=== PATIENT | female | born 1980 | race Caucasian/White ===

== ENCOUNTER 2020-08-15 17:22 | Emergency (ER) | payer SELFPAY ==
[2020-08-15 17:26] VITALS: BP 127/88; PULSE 89; RESP 16; TEMP 36.7; O2SAT 100; BMI 20.3
--- NOTE | 2020-08-15 17:34 | W.ED.ABDPA2 ---
HPI - Abdominal Pain General: Chief Complaint: Abdominal Pain Stated Complaint: ABD PAIN Time Seen by Provider: 08/15/20 17:32 History of Present Illness: HPI narrative: Patient is a 40-year-old female comes to the ED with left lower pelvic pain and vaginal bleeding. Patient says this is a chronic issue and has been going on since 2019. She was set up to see an OB specialist in [place] due to an abnormal Pap smear about a year ago but lost her insurance and never went. Denies having a current PCP. patient says she has daily vaginal bleeding that fluctuates between light and heavy bleeding each day. She usually has mild left pelvic pain daily. Today she comes to the ED because her left-sided pelvic pain was a lot worse than usual. She describes it as a sharp pain and says she took some Aleve before coming to the ED and her pain has improved. She currently rates her pain a 3 out of 10. Patient endorses having constipation and having bowel movements every 5 to 7 days. Denies fever, chills, chest pain, shortness of breath, nausea/vomiting, diarrhea, dysuria or hematuria. Associated Symptoms: Denies chills, constipation, diarrhea, dysuria, fever(s), hematochezia, hematuria, nausea and vomiting Related Data: Date of Last Menstrual Period: 08/15/20 Review of Systems Const: Denies: fever(s), chills or fatigue Eyes: Denies: change in vision or eye discomfort ENMT: Denies: throat pain, odynophagia, nasal discharge or nasal congestion Card: Denies: chest pain, palpitations, edema, swelling of feet/ankles, dyspnea on exertion or orthopnea Resp: Denies: dyspnea, productive cough or non-productive cough GI: Denies: abdominal pain, nausea, vomiting, diarrhea, constipation or hematochezia : Reports: vaginal bleeding and pelvic pain (left side); Denies: flank pain, dysuria or hematuria Musc: Denies: neck pain, back pain or extremity swelling Skin/Breast: Denies: rash or new lesions Neuro: Denies: headache(s), numbness in extremities or weakness in extremities [facility] ED Female Reproductive History: Date of last menstrual period: 08/15/20 Physical Exam Const: COMMON NORMALS: no acute distress, patient oriented x3, healthy appearing and alert GENERAL APPEARANCE: cooperative and comfortable HENMT: COMMON NORMALS: normocephalic HEAD & SCALP: normocephalic MOUTH: Normal oral and palatal mucosa present THROAT: posterior oropharynx normal and uvula midline Neck/C-Spine: COMMON NORMALS: supple GENERAL: Yes normal visual inspection Resp: COMMON NORMALS: normal respiratory effort, No retractions, No use of accessory muscles and clear to auscultation bilaterally AUSCULTATION: clear to auscultation bilaterally Cardio: COMMON NORMALS: regular rate, regular rhythm, S1 normal heart sound present, S2 normal heart sound present, No gallops present (Cardio), No clicks present (Cardio), No murmurs present (Cardio) and Peripheral pulses 2+ throughout RATE: regular rate RHYTHM: regular rhythm HEART SOUNDS: S1 normal heart sound present and S2 normal heart sound present PERIPHERAL PULSES: Peripheral pulses 2+ throughout GI: COMMON NORMALS: Normal to inspection, nondistended, normoactive bowel sounds present, Soft to palpation and no masses PALPATION: Yes Soft to palpation and Yes Tenderness to palpation present (GI) Details: other (left lower pelvic tenderness) : COMMON NORMALS: Yes no CVA tenderness BLADDER/KIDNEY EXAM: Yes no CVA tenderness Back/Pelvis: COMMON NORMALS: no CVA tenderness Extremity: COMMON NORMALS: normal to inspection and no pedal edema Neuro: COMMON NORMALS: patient oriented x3 SENSORIUM/ORIENTATION: Yes alert GAIT: Yes Normal gait present Skin: GENERAL SKIN EXAM: dry skin Course Vital Signs: Vital signs: Vital Signs Temperature 98.1 F 08/15/20 20:48 Pulse Rate 89 08/15/20 20:48 Respiratory Rate 16 08/15/20 20:48 Blood Pressure 122/80 08/15/20 20:48 Pulse Oximetry 99 08/15/20 20:48 MDM - Abdominal Pain MDM Narrative: Medical decision making narrative: Patient is a 40-year-old female comes to the ED with chronic pelvic pain and vaginal bleeding. Patient says symptoms have been going on since 2019. She was scheduled to see an manager summer specialist in [place] about a year ago to further evaluate abnormal Pap smear, but she lost her insurance and never went to see manager summer specialist. Patient appears in no acute distress or pain. CBC and CMP were unremarkable. Urinalysis shows possible UTI. Ultrasound of the pelvis shows uterine fibroid and cervix with an abnormality which could be due to a fibroid or other cervical mass. I went in and discussed ultrasound findings with patient. I highlighted with patient that it is very important for her to follow-up with OB.contact center analyst specialist to further evaluate cervix. I told her that I put in an order with case management for patient be referred to an manager summer specialist. Return to ED precautions given. I once again stressed with patient that this could potentially be cancerous and told her that she needs to get further evaluation and should go to scheduled appointment with specialist once set up by case management. Patient understood and agreed with plan. Lab Data: Attestation: I reviewed the patient's lab results. Labs: Lab Results 08/15/20 08/15/20 08/15/20 Range/Units 17:53 17:53 17:53 WBC 12.4 H (4.0-10.0) 10^3/ uL RBC 4.28 (4.1-5.3) 10^6/u L Hgb 13.5 (11.5-15.3) g/dL Hct 40.3 (37.0-47.0) % MCV 94.2 (81-99) fL MCH 31.5 (28.0-34.0) pg MCHC 33.5 (30.0-36.0) g/dL RDW 14.6 (12.1-15.1) % Plt Count 192 (130-400) 10^3/c mm MPV 12.4 H (7.4-10.4) fL Neut % (Auto) 69.5 % Lymph % (Auto) 15.4 % [place] % (Auto) 6.4 % Eos % (Auto) 8.0 % Baso % (Auto) 0.5 % Neut # (Auto) 8.65 H (1.8-7.7) 10^3/u L Lymph # (Auto) 1.9 (0.8-4.8) 10^3/u L [place] # (Auto) 0.8 (0.2-0.9) 10^3/u L Eos # (Auto) 1.0 H (0.0-0.8) 10^3/u L Baso # (Auto) 0.1 (0.0-0.1) 10^3/u L Nucleated RBC % (a uto) 0 % Nucleated RBCs # 0.0 /100WBC Sodium Cancelled Potassium Cancelled Chloride Cancelled Carbon Dioxide Cancelled Anion Gap Cancelled BUN Cancelled Creatinine Cancelled GFR Calculation Cancelled Glucose Cancelled Calculated Osmolal ity Cancelled Calcium Cancelled Total Bilirubin Cancelled AST Cancelled ALT Cancelled Alkaline Phosphata se Cancelled Total Protein Cancelled Albumin Cancelled Globulin Cancelled Lipase Cancelled HCG, Qual Negative (Negative) Urine Color (Yellow) Urine Appearance (CLEAR) Urine pH (5-7) Ur Specific Gravit y (1.005-1.030) Urine Protein (Negative) Urine Glucose (UA) (Normal) Urine Ketones (Negative) Urine Blood (Negative) Urine Nitrate (Negative) Urine Bilirubin (Negative) Urine Urobilinogen (Negative) mg/dL Ur Leukocyte Joy ase (Negative) Urine RBC (0-2) /hpf Urine WBC (0-5) /hpf Ur Squamous Epith Cells (0-5) /hpf Amorphous Sediment Urine Bacteria (NONE) /hpf 08/15/20 08/15/20 Range/Units 18:40 19:04 WBC (4.0-10.0) 10^3/ uL RBC (4.1-5.3) 10^6/u L Hgb (11.5-15.3) g/dL Hct (37.0-47.0) % MCV (81-99) fL MCH (28.0-34.0) pg MCHC (30.0-36.0) g/dL RDW (12.1-15.1) % Plt Count (130-400) 10^3/c mm MPV (7.4-10.4) fL Neut % (Auto) % Lymph % (Auto) % [place] % (Auto) % Eos % (Auto) % Baso % (Auto) % Neut # (Auto) (1.8-7.7) 10^3/u L Lymph # (Auto) (0.8-4.8) 10^3/u L [place] # (Auto) (0.2-0.9) 10^3/u L Eos # (Auto) (0.0-0.8) 10^3/u L Baso # (Auto) (0.0-0.1) 10^3/u L Nucleated RBC % (a uto) % Nucleated RBCs # /100WBC Sodium 140 Potassium 3.8 Chloride 107 Carbon Dioxide 21 L Anion Gap 15.8 BUN 12 Creatinine 0.6 GFR Calculation 111.9 Glucose 92 Calculated Osmolal ity 289 Calcium 9.7 Total Bilirubin 0.2 AST 14 ALT 9 Alkaline Phosphata se 91 Total Protein 7.6 Albumin 4.4 Globulin 3.2 Lipase 23 HCG, Qual (Negative) Urine Color Red (Yellow) Urine Appearance Bloody A (CLEAR) Urine pH 5.0 (5-7) Ur Specific Gravit y 1.005 (1.005-1.030) Urine Protein 2+ H (Negative) Urine Glucose (UA) Norm (Normal) Urine Ketones 1+ H (Negative) Urine Blood 3+ H (Negative) Urine Nitrate Negative (Negative) Urine Bilirubin Neg (Negative) Urine Urobilinogen Norm (Negative) mg/dL Ur Leukocyte Joy ase 2+ H (Negative) Urine RBC 15-25 H (0-2) /hpf Urine WBC 40-55 H (0-5) /hpf Ur Squamous Epith Cells 5-10 H (0-5) /hpf Amorphous Sediment Not Reportable Urine Bacteria Trace (NONE) /hpf Imaging Data ^: US: Attestation: I personally reviewed and interpreted this imaging study as follows: Radiologist's impression: [address] [address] Ultrasound Report Signed with Addenda Patient: Yanely Barajas Unit #: [id number] : [id number] Age/Sex: 40 / F ADM Date: 08/15/20 Loc: ER Room/Bed: Attending Dr: Ordering Provider/Ordering MD: Ilir Chaudhary Date of Service: 08/15/20 Procedure(s): US pelvic with transvaginal Accession Number(s): [id number] Report Number: [id number] ADDENDUM US/US pelvic with transvaginal This study included both transabdominal and transvaginal images. Addendum Dictated By: Vinh Adhikari Addendum Signed By: Vinh Adhikari Signed Date/Time: 08/15/20 1 924 Addendum Cosigned By: PROCEDURE INFORMATION: Exam: US Nonobstetric Pelvis; Complete Exam date and time: 08/15/2020 7:07 PM Age: 40 years old Clinical indication: Other: Bleeding; Prior surgery; Surgery type: C-sec; Additional info: Vaginal bleeding and left pelvic pain TECHNIQUE: Imaging protocol: Transabdominal pelvic nonobstetric ultrasound. Complete exam. Real time ultrasound with image documentation. COMPARISON: No relevant prior studies available. FINDINGS: Uterus/cervix: The uterus measures 9.3 x 4.6 x 5.2 cm. Endometrial thickness 7 mm. 2.6 cm slightly hyperechoic mass in the lower anterior uterus, most likely a fibroid. There is fullness in the region of the cervix. Right adnexa: The right ovary measures 3.2 x 2.1 x 2.7 cm with a 2.2 cm hemorrhagic follicle and normal blood flow. Left adnexa: The left ovary measures 3.2 x 1.8 x 2.7 cm with normal blood flow. Intraperitoneal space: Trace free fluid in the cul-de-sac. Urinary bladder: Normal. US/US pelvic with transvaginal IMPRESSION: 1. 2.2 cm hemorrhagic follicle in the right ovary. No imaging follow-up is recommended. 2. Probable 2.6 cm lower uterine fibroid. 3. Fullness in the region of the cervix. An underlying cervical mass or fibroid is not excluded. Clinical correlation with direct visualization is recommended. Dictated By: Vinh Adhikari Signed By: Vinh Adhikari Signed Date/Time: 08/15/201923 DD/ 22 Discharge Plan Discharge Patient Disposition: Home Clinical Impression: Vaginal bleeding, Cervix abnormality Uterine fibroid Qualifiers: Uterine leiomyoma location: unspecified location Qualified Code(s): D25.9 - Leiomyoma of uterus, unspecified UTI (urinary tract infection) Qualifiers: Urinary tract infection type: acute cystitis Hematuria presence: with hematuria Qualified Code(s): N30.01 - Acute cystitis with hematuria Condition: Stable Prescriptions: New cefdinir 300 mg capsule 300 mg PO BID 7 Days Qty: 14 RF: 0 No Action Aleve 220 mg Tablet 220 - 440 mg PO Q6H PRN (Reason: Sleep) RF: 0 Tylenol PM Extra Strength 25-500 mg Tablet 1 tab PO Q4H PRN (Reason: pain/sleep) RF: 0 Discharge Orders: Discharge ED (Routine); Ordered 08/15/20 Ordered By: Ilir Chaudhary Discharge Diet: Regular Discharge Activity: Resume usual activity Patient Instructions: Uterine Fibroids (ED), Cervical Cancer (GEN) Activity Restrictions/Additional Instructions: Follow-up with medical provider as directed. Case management should be contacting you in the next several days to set up an appointment with web architect specialist. It is important that you see a provider to further evaluate due to possibility of cancer. Return to the ER or your medical provider if condition worsens. Please read and understand discharge instructions. If any questions, please ask. Coding Level of Care Code ED Cable Former for Kyle Fwd Exam Comprehensive
--- NOTE | 2020-08-15 17:59 | XR_ITS ---
WS: [id number] Exam: XR KUB portable [id number] Date/Time of Exam: 08/15/2020 5:59 PM Reason For Exam: Constipation No bowel obstruction or free air. Visualized organ margins are intact. Moderate amount retained stool throughout the large bowel. Regional bony structures are intact. XR/XR KUB portable [id number] IMPRESSION: 1. No acute abdominal finding. 2. Constipation.
--- NOTE | 2020-08-15 17:59 | USR_ITS ---
PROCEDURE INFORMATION: Exam: US Nonobstetric Pelvis; Complete Exam date and time: 08/15/2020 7:07 PM Age: 40 years old Clinical indication: Other: Bleeding; Prior surgery; Surgery type: C-sec; Additional info: Vaginal bleeding and left pelvic pain TECHNIQUE: Imaging protocol: Transabdominal pelvic nonobstetric ultrasound. Complete exam. Real time ultrasound with image documentation. COMPARISON: No relevant prior studies available. FINDINGS: Uterus/cervix: The uterus measures 9.3 x 4.6 x 5.2 cm. Endometrial thickness 7 mm. 2.6 cm slightly hyperechoic mass in the lower anterior uterus, most likely a fibroid. There is fullness in the region of the cervix. Right adnexa: The right ovary measures 3.2 x 2.1 x 2.7 cm with a 2.2 cm hemorrhagic follicle and normal blood flow. Left adnexa: The left ovary measures 3.2 x 1.8 x 2.7 cm with normal blood flow. Intraperitoneal space: Trace free fluid in the cul-de-sac. Urinary bladder: Normal. US/US pelvic with transvaginal IMPRESSION: 1. 2.2 cm hemorrhagic follicle in the right ovary. No imaging follow-up is recommended. 2. Probable 2.6 cm lower uterine fibroid. 3. Fullness in the region of the cervix. An underlying cervical mass or fibroid is not excluded. Clinical correlation with direct visualization is recommended.
[2020-08-15 18:06] LABS: Basophils # 0.1 10^3/uL (0.0-0.1); Basophils % 0.5 %; Hematocrit 40.3 % (37.0-47.0); Hemoglobin 13.5 g/dL (11.5-15.3); Lymphocytes # 1.9 10^3/uL (0.8-4.8); Lymphocytes % 15.4 %; Mean Corpuscular HGB Conc 33.5 g/dL (30.0-36.0); Mean Corpuscular Hemoglobin 31.5 pg (28.0-34.0); Mean Corpuscular Volume 94.2 fL (81-99); Mean Platelet Volume 12.4 fL (7.4-10.4); Monocytes # 0.8 10^3/uL (0.2-0.9); Monocytes % 6.4 %; Neutrophils # 8.65 10^3/uL (1.8-7.7); Neutrophils % 69.5 %; Nucleated Red Blood Cells % 0 %; Platelet Count 192 10^3/cmm (130-400); Red Blood Count 4.28 10^6/uL (4.1-5.3); Red Cell Distribution Width 14.6 % (12.1-15.1); White Blood Count 12.4 10^3/uL (4.0-10.0)
[2020-08-15] MEDS: sodium chloride 0.9% 1,000 ML 999 ML IV (18:25)
[2020-08-15 19:13] LABS: HCG, Serum Qual Negative (Negative)
[2020-08-15 19:27] LABS: Alanine Aminotransferase 9 U/L (0-33); Albumin Level 4.4 g/dL (3.5-5.2); Alkaline Phosphatase 91 IU/L (35-105); Aspartate Amino Transferase 14 U/L (0-32); Blood Urea Nitrogen 12 mg/dL (6-20); Calcium 9.7 mg/dL (8.5-10.5); Carbon Dioxide 21 mmol/L (22-29); Chloride 107 mmol/L (98-107); Globulin 3.2 g/dL (1.3-4.6); Glomerular Filtration Rate 111.9 mL/min (90-130); Glucose 92 mg/dL (65-115); Lipase 23 U/L (13-60); Osmolality Calculated 289 mOsm/kg (285-295); Sodium 140 mmol/L (136-145); Total Bilirubin 0.2 mg/dL (0.15-1.2); Total Protein 7.6 g/dL (6.6-8.7)
[2020-08-15 19:29] LABS: Anion Gap 15.8 (5-19); Potassium 3.8 mmol/L (3.5-5.1)
[2020-08-15 19:39] LABS: Add Urine Culture? Yes; Bacteria Urine TRACE /hpf; Bilirubin Urine Neg (Negative); Blood Urine 3+ (Negative); Glucose Urine UA Norm (Normal); Ketones Urine 1+ (Negative); Leukocyte Esterase Urine 2+ (Negative); Nitrate Urine Negative (Negative); Protein Urine 2+ (Negative); RBC Urine 15-25 /hpf (0-2); Specific Gravity, Urine 1.005 (1.005-1.030); Urine Appearance Bloody (CLEAR); Urine Color Red (Yellow); Urobilinogen Urine Norm (Negative); WBC Urine 40-55 /hpf (0-5)
[2020-08-15 19:59] VITALS: BP 128/83; PULSE 94; RESP 16; O2SAT 100
[2020-08-15 20:00] VITALS: BP 128/83; PULSE 94; RESP 16; O2SAT 100
[2020-08-15] MEDS: ketorolac 30 mg/mL INJ IVP (20:17)
[2020-08-15] MEDS: cefdinir 300 MG CAPSULE PO (20:17)
[2020-08-15 20:48] VITALS: BP 122/80; PULSE 89; RESP 16; TEMP 36.7; O2SAT 99
--- NOTE | 2020-08-16 10:23 | DCPLANNER ---
fast food restaurant manager had message to schedule a follow up appointment for patient with [facility]. fast food restaurant manager called [facility], spoke with [place], gave clinic patients information. fast food restaurant manager was told that patients information would be printed and reviewed. Clinic will call patient with appointment information.
--- NOTE | 2020-08-20 12:36 | DCPLANNER ---
Patient had a follow up appointment scheduled for 08.19.20 with [facility] - patient did attend appointment.
== END 2020-08-15 20:52 | disposition home or self-care (01) ==
PROVIDERS: Emergency Provider Physician Assistant
DX: D25.9 Leiomyoma of uterus, unspecified (principal); N30.01 Acute cystitis with hematuria; N93.9 Abnormal uterine and vaginal bleeding, unspecified; N88.9 Noninflammatory disorder of cervix uteri, unspecified
CPT/HCPCS: 12345; 74018; 76830; 76856; 80053; 81001; 83690; 84703; 85025; 87086; 96361; 96374; 99283; J1885; J7030

== ENCOUNTER → 2020-09-12 07:48 | Outpatient (BNVA) | payer SELFPAY | PROVIDERS: Visit Provider Obstetrics & Gynecology | DX: N93.9 Abnormal uterine and vaginal bleeding, unspecified (principal); N88.8 Other specified noninflammatory disorders of cervix uteri; R10.9 Unspecified abdominal pain; C53.9 Malignant neoplasm of cervix uteri, unspecified | CPT/HCPCS: 81025; 88305 ==

== ENCOUNTER 2022-11-11 15:57 | Observation (INO) | payer MEDICAID, SELFPAY ==
[2022-11-11 16:05] VITALS: BP 117/89; PULSE 96; RESP 18; TEMP 36.7; O2SAT 99; BMI 21.6
--- NOTE | 2022-11-11 17:00 | CTR_ITS ---
PROCEDURE INFORMATION: Exam: CT Abdomen And Pelvis With Contrast Exam date and time: 11/11/2022 6:59 PM Age: 42 years old Clinical indication: Abdominal pain; Additional info: Abd pain TECHNIQUE: Imaging protocol: Computed tomography of the abdomen and pelvis with contrast. Axial, coronal and sagittal reformatted images were created and reviewed. Radiation optimization: All CT scans at this facility use at least one of these dose optimization techniques: automated exposure control; mA and/or kV adjustment per patient size (includes targeted exams where dose is matched to clinical indication); or iterative reconstruction. Contrast material: OMNI 350; Contrast volume: 100 ml; Contrast route: INTRAVENOUS (IV); REPORTING DATA: Count of CT and Cardiac NM exams in prior 12 months: This patient has received 0 known CTs and 0 known cardiac nuclear medicine studies in the 12 months prior to the current study. COMPARISON: CT abdomen pelvis w con* [id number] 11/11/2022 6:43 PM RADIATION DOSE METRICS: Total DLP (mGy-cm): 427.93 FINDINGS: Lungs: Dependent linear stranding and groundglass, likely due to atelectasis and/or scarring. Liver: Scattered subcentimeter low-density hepatic lesions, measuring up to 4 mm, too small to characterize. Gallbladder and bile ducts: Mild gallbladder distention without radiodense gallstones. Pancreas: Unremarkable. Spleen: Coarse calcified splenic granulomata. Adrenal glands: Normal. No mass. Kidneys and ureters: Bilateral renal cysts, measuring up to 1.4 cm on the left (no follow-up is indicated based on the imaging appearance). No radiodense calculi. No hydronephrosis. Stomach and bowel: Multiple moderately dilated loops of small bowel with air-fluid levels and somewhat gradual transition to decompressed small bowel in the pelvis, where there are multiple thick-walled, edematous loops of small bowel. No pneumatosis. Appendix: Normal. Intraperitoneal space: Small ascites. No organized collection. No free air. Vasculature: Minimal atherosclerotic disease. No aneurysm or dissection. Lymph nodes: No pathologically enlarged lymph nodes. Urinary bladder: Unremarkable as visualized. Reproductive: Unremarkable. Bones/joints: No acute osseous abnormality. Soft tissues: Unremarkable. CT/CT abdomen pelvis w con* [id number] IMPRESSION: 1. Findings suggestive of partial small bowel obstruction, secondary to nonspecific enteritis, as described above. 2. Additional findings, as above. COMMENTS: Consistent with the [employer]'s Incidental Findings Committee white paper (J Am Shu Radiol 2018): Any incidental renal lesion less than 1 cm or classified as too small to characterize, or any incidental cystic renal lesion characterized as simple-appearing, is likely benign. No follow-up imaging is recommended for these lesions per consensus recommendations based on imaging criteria.
--- NOTE | 2022-11-11 18:11 | ED_ITS ---
HPI - Abdominal Pain General: Chief Complaint: Abdominal Pain Stated Complaint: abd pain N/V Time Seen by Provider: 11/11/22 17:28 Source: patient and family Mode of arrival: ambulatory Limitations: no limitations History of Present Illness: This patient presents to our emergency department because of abdominal pain. She states this current episode of abdominal pain began Wednesday. She states it is waxing and waning comes on with crampy colicky type pain which lasts for seconds to minutes and then resolves. She states it seems to worsen by eating or drinking. She states she has been unsuccessful in eating and has had very little to drink without emesis since Wednesday. She denies any fevers or chills, known exposure to infectious disease, like symptoms in other family members, recent travel, recent antibiotic use. She states she has had a few similar episodes since August and has been evaluated once at that time and thought have a gastroenteritis and discharged to symptomatic treatment. She had a prior pelvic surgery to include a total abdominal hysterectomy. She had cervical cancer that also required preoperative internal and external radiation therapy. She is still followed by oncology. She has no history of biliary tract disease. She has no history of esophageal reflux, peptic ulcer disease etc. No history of inflammatory bowel disease. She states that she is able to eat simple carbohydrates sometimes but any kind of heavier foods seem to exacerbate her symptoms. Exacerbating factors: eating Associated Symptoms: Reports vomiting; Denies chills, dysuria, fever(s), hematochezia, hematemesis and melena Review of Systems Const: Denies: fever(s) or chills Eyes: Denies: change in vision ENMT: Denies: throat pain, odynophagia, nasal discharge or nasal congestion Card: Denies: chest pain, palpitations, irregular heart rhythm or edema Resp: Denies: dyspnea, productive cough or non-productive cough GI: Reports: abdominal pain and vomiting; Denies: hematemesis, hematochezia or melena : Denies: flank pain, difficulty voiding, dysuria or urinary frequency Musc: Denies: neck pain, back pain, extremity pain or extremity swelling Skin/Breast: Denies: rash Neuro: Denies: headache(s), numbness in extremities or weakness in extremities Psych: Denies: anxiety or depression PFSH ED PFSH: Medical History Abnormal Pap smear of cervix Surgical History H/O section x2 History of bilateral tubal ligation With last section. Family History Grandmother Stroke Maternal Sister Thyroid disease Social History Smoking and tobacco status: current every day smoker cigarettes Packs smoked per day: 1 [ Other cigarette details: Started age 17.] Alcohol intake: former Former alcohol use details: None for approximately 10 years. Substance/Drug Use: never Physical Exam Narrative: EXAM NARRATIVE: She appears to be comfortable, answers questions in a goal-directed fashion. Const: COMMON NORMALS: no acute distress, average body habitus, patient oriented x3, healthy appearing and alert GENERAL APPEARANCE: cooperative and comfortable HENMT: COMMON NORMALS: normocephalic, Normal nasal mucous membranes and turbinates present, moist oral mucous membranes and oropharynx normal HEAD & SCALP: normocephalic FACE & SINUS: normal facial exam NOSE: Normal nasal mucous membranes and turbinates present Eye: COMMON NORMALS: Equal, round and reactive pupils present, EOMs intact bilaterally and conjunctivae normal CONJUNCTIVA: Yes conjunctivae normal PUPIL: Yes Equal, round and reactive pupils present Neck/C-Spine: COMMON NORMALS: full ROM, no lymphadenopathy and no JVD Chest: COMMONS NORMALS: normal inspection of the chest Resp: COMMON NORMALS: normal respiratory effort, No retractions, No use of accessory muscles and clear to auscultation bilaterally AUSCULTATION: clear to auscultation bilaterally Cardio: COMMON NORMALS: no JVD, regular rate, regular rhythm, No murmurs present (Cardio) and Peripheral pulses 2+ throughout RATE: regular rate RHYTHM: regular rhythm PERIPHERAL PULSES: Peripheral pulses 2+ throughout GI: COMMON NORMALS: Normal to inspection, nondistended, normoactive bowel sounds present AUSCULTATION: Yes normoactive bowel sounds PALPATION: Yes Tenderness to palpation present (GI) (Tender in various locations with voluntary guarding.), No Hernia present and No Palpable mass present : COMMON NORMALS: Yes no CVA tenderness BLADDER/KIDNEY EXAM: Yes no CVA tenderness EXTERNAL FEMALE EXAM: No Hernia present Back/Pelvis: COMMON NORMALS: no CVA tenderness, thoracic and lumbar spine normal to inspection, no thoracic nor lumbar tenderness and thoraco-lumbar ROM normal Extremity: COMMON NORMALS: normal to inspection, full ROM, capillary refill normal, no calf tenderness and no pedal edema Neuro: COMMON NORMALS: patient oriented x3, moves all extremities, no focal motor deficits and no sensory deficits noted SENSORIUM/ORIENTATION: Yes alert CRANIAL NERVES: Yes CN normal except as noted Psych: COMMON NORMALS: mental status grossly normal, Normal thought process present and speech normal SPEECH: Yes normal speech THOUGHT PROCESS: Normal thought process present Skin: COMMON NORMALS: no rashes or lesions noted, no wounds, turgor normal and no jaundice GENERAL SKIN EXAM: no rashes or lesions noted and turgor normal Course Reevaluation(s): Reevaluation #1: Patient's received IV hydration and clinically stable but still having episodes of colicky cramping pain. Again no peritoneal signs at this time. Discussed current findings and to include imaging studies as well as her surprising TSH elevation. Discussed need for observation and continued hydration n.p.o. status and to reassess for symptom resolution as well as sideration for thyroid replacement. Time: 20:49 Consultations: Consultation #1: Discussed with Dr. Mica [facility] hospitalist who agreed to admit to hospital and follow her symptoms and engage additional work-up and consultation as indicated. Time: 20:54 Vital Signs: Vital signs: Vital Signs Temperature 98.1 F 11/11/22 16:05 Pulse Rate 86 11/11/22 20:05 Respiratory Rate 18 11/11/22 20:05 Blood Pressure 125/88 11/11/22 20:05 Pulse Oximetry 96 11/11/22 20:05 Oxygen Delivery Me thod Room Air 11/11/22 20:05 MDM - Abdominal Pain Medical Decision Making This patient presented to our emergency department because of colicky abdominal pain and similar to that which has been intermittently reoccurring over the last several months since August of this year. Her past history was remarkable in that she had cervical cancer with total abdominal hysterectomy and preoperative radiation to treat her condition and is still followed by oncology on an every 3-month basis. Her clinical examination revealed evidence of abdominal tenderness which was nonfocal but seem to be more diffuse. There is certainly voluntary guarding with no evidence of peritoneal signs or surgical abdomen at the time of evalu ation in the emergency department. Work-up ensued. Notable that she had findings of a partial small bowel obstruction on CT scan. Also notable is that she had a significant elevation in TSH suggestive of possible occult hypothyroidism. T4 is pending at the time of this dictation. Certainly no evidence of acute surgical abdomen or complete bowel obstruction. Plan will be to admit her to observation, keep her bowel rest, hydrate, pain control and follow her response. Reviewed with overnight hospitalist and will plan on placing her in the hospital for additional evaluation, symptom control, reevaluation for resolution. Medical Records I reviewed the patient's medical records. Lab Data I reviewed the patient's lab results. 11/11/22 18:30 11/11/22 18:30 Labs/Radiology: Laboratory Results WBC 3.4 10^3/uL (4.0-10.0) L 11/11/22 18:30 RBC 5.29 10^6/uL (4.1-5.3) 11/11/22 18:30 Hgb 17.8 g/dL (11.5-15.3) H 11/11/22 18:30 Hct 51.3 % (37.0-47.0) H 11/11/22 18:30 MCV 97.0 fl (81-99) 11/11/22 18:30 MCH 33.6 pg (28.0-34.0) 11/11/22 18:30 MCHC 34.7 g/dL (30.0-36.0) 11/11/22 18:30 RDW 15.7 % (12.1-15.1) H 11/11/22 18:30 Plt Count 206 10^3/cmm (130-400) 11/11/22 18:30 MPV 11.0 fL (7.4-10.4) H 11/11/22 18:30 Neut % (Auto) 53.5 % 11/11/22 18:30 Lymph % (Auto) 29.3 % 11/11/22 18:30 [place] % (Auto) 13.6 % 11/11/22 18:30 Eos % (Auto) 2.7 % 11/11/22 18:30 Baso % (Auto) 0.6 % 11/11/22 18:30 Neut # (Auto) 1.81 10^3/uL (1.8-7.7) 11/11/22 18:30 Lymph # (Auto) 1.0 10^3/uL (0.8-4.8) 11/11/22 18:30 [place] # (Auto) 0.5 10^3/uL (0.2-0.9) 11/11/22 18:30 Eos # (Auto) 0.1 10^3/uL (0.0-0.8) 11/11/22 18:30 Baso # (Auto) 0.0 10^3/uL (0.0-0.1) 11/11/22 18:30 Nucleated RBC % (auto) 0 % 11/11/22 18:30 Nucleated RBCs # 0.0 /100WBC 11/11/22 18:30 Sodium 137 mmol/L (136-145) 11/11/22 18:30 Potassium 4.3 mmol/L (3.5-5.1) 11/11/22 18:30 Chloride 96 mmol/L (98-107) L 11/11/22 18: Carbon Dioxide 24 mmol/L (22-29) 11/11/22 18:30 Anion Gap 21.3 (5-19) H 11/11/22 18:30 BUN 14 mg/dL (6-20) 11/11/22 18:30 Creatinine 0.7 mg/dL (0.5-0.9) 11/11/22 18:30 GFR Calculation 92.7 mL/min (90-130) 11/11/22 18:30 Glucose 94 mg/dL (65-115) 11/11/22 18:30 Calculated Osmolality 284 mOsm/kg (285-295) L 11/11/22 18:30 Calcium 9.9 mg/dL (8.5-10.5) 11/11/22 18:30 Total Bilirubin 0.7 mg/dL (0.15-1.2) 11/11/22 18:30 AST 17 U/L (0-32) 11/11/22 18:30 ALT 11 U/L (0-33) 11/11/22 18:30 Alkaline Phosphatase 151 U/L (35-105) H 11/11/22 18:30 Total Protein 8.3 g/dL (6.6-8.7) 11/11/22 18:30 Albumin 4.9 g/dL (3.5-5.2) 11/11/22 18:30 Globulin 3.4 g/dL (1.3-4.6) 11/11/22 18:30 Lipase 13 U/L (13-60) 11/11/22 18:30 TSH 118.70 uIU/mL (0.27-4.20) H 11/11/22 18:30 Urine Color Yellow (Yellow) 11/11/22 20:05 Urine Appearance Sl hazy (CLEAR) A 11/11/22 20:05 Urine pH 5 (5-7) 11/11/22 20:05 Ur Specific [place] 1.010 (1.005-1.030) 11/11/22 20:05 Urine Protein 1+ (Negative) H 11/11/22 20:05 Urine Glucose (UA) Norm (Normal) 11/11/22 20:05 Urine Ketones 2+ (Negative) H 11/11/22 20:05 Urine Blood Trace (Negative) H 11/11/22 20:05 Urine Nitrate Negative (Negative) 11/11/22 20:05 Urine Bilirubin Neg (Negative) 11/11/22 20:05 Urine Urobilinogen 1 mg/dL (Negative) H 11/11/22 20:05 Ur Leukocyte Esterase Trace (Negative) H 11/11/22 20:05 Urine RBC 0-4 /hpf (0-2) H 11/11/22 20:05 Urine WBC 0-4 /hpf (0-5) H 11/11/22 20:05 Ur Squamous Epith Cells 5-10 /hpf (0-5) H 11/11/22 20:05 Amorphous Sediment Not Reportable 11/11/22 20:05 Urine Bacteria Trace /hpf (NONE) 11/11/22 20:05 Discharge Plan Discharge Patient Disposition: Placed in Observation Clinical Impression: Partial small bowel obstruction, Hypothyroidism Condition: Stable Prescriptions: No Action hydrocodone-acetaminophen [[place]] 5-325 mg tablet 1 - 2 tab PO Q6H PRN (Reason: pain) 7 Days Qty: 30 0RF Aleve 220 mg Tablet 220 - 440 mg PO Q6H PRN (Reason: Sleep) Tylenol PM Extra Strength 25-500 mg Tablet 1 tab PO Q4H PRN (Reason: pain/sleep) Referrals: Donovan Henderson [Primary Care Provider] - Coding Level of Care Code ED [facility] for [facility] [place]
[2022-11-11 18:27] VITALS: RESP 16
[2022-11-11] MEDS: fentaNYL 50 mcg/mL INJ 2mL IVP ×2 (18:27→21:02)
[2022-11-11] MEDS: ondansetron 2 mg/ML SDV 2 mL 4 MG IVP (18:28)
[2022-11-11] MEDS: sodium chloride 0.9% 1,000 ML 999 ML IV (18:29)
[2022-11-11 18:50] LABS: Basophils % 0.6 %; Eosinophils # 0.1 10^3/uL (0.0-0.8); Eosinophils % 2.7 %; Hematocrit 51.3 % (37.0-47.0); Hemoglobin 17.8 g/dL (11.5-15.3); Lymphocytes % 29.3 %; Mean Corpuscular HGB Conc 34.7 g/dL (30.0-36.0); Mean Corpuscular Hemoglobin 33.6 pg (28.0-34.0); Monocytes # 0.5 10^3/uL (0.2-0.9); Monocytes % 13.6 %; Neutrophils # 1.81 10^3/uL (1.8-7.7); Neutrophils % 53.5 %; Nucleated Red Blood Cells % 0 %; Platelet Count 206 10^3/cmm (130-400); Red Blood Count 5.29 10^6/uL (4.1-5.3); Red Cell Distribution Width 15.7 % (12.1-15.1); White Blood Count 3.4 10^3/uL (4.0-10.0)
[2022-11-11 19:18] LABS: Alanine Aminotransferase 11 U/L (0-33); Albumin Level 4.9 g/dL (3.5-5.2); Alkaline Phosphatase 151 U/L (35-105); Blood Urea Nitrogen 14 mg/dL (6-20); Calcium 9.9 mg/dL (8.5-10.5); Carbon Dioxide 24 mmol/L (22-29); Chloride 96 mmol/L (98-107); Globulin 3.4 g/dL (1.3-4.6); Glomerular Filtration Rate 92.7 mL/min (90-130); Glucose 94 mg/dL (65-115); Lipase 13 U/L (13-60); Osmolality Calculated 284 mOsm/kg (285-295); Sodium 137 mmol/L (136-145); Total Bilirubin 0.7 mg/dL (0.15-1.2); Total Protein 8.3 g/dL (6.6-8.7)
[2022-11-11 19:21] LABS: Anion Gap 21.3 (5-19); Aspartate Amino Transferase 17 U/L (0-32); Potassium 4.3 mmol/L (3.5-5.1)
[2022-11-11 20:05] VITALS: BP 125/88; PULSE 86; RESP 18; O2SAT 96
[2022-11-11 20:31] LABS: Add Urine Microscopic? YES; Bilirubin Urine Neg (Negative); Blood Urine Trace (Negative); Glucose Urine UA Norm (Normal); Ketones Urine 2+ (Negative); Leukocyte Esterase Urine Trace (Negative); Nitrate Urine Negative (Negative); Protein Urine 1+ (Negative); Urine Appearance SL Hazy (CLEAR); Urine Color Yellow (Yellow); Urobilinogen Urine 1 mg/dL (Negative); pH Urine 5 (5-7)
[2022-11-11 20:32] LABS: Add Urine Culture? No; Bacteria Urine TRACE /hpf; RBC Urine 0-4 /hpf (0-2); WBC Urine 0-4 /hpf (0-5)
[2022-11-11] MEDS: lactated ringers 1,000 ML 150 ML IV (20:59)
--- NOTE | 2022-11-11 21:27 | PC.NURSE ---
NURSE ATTEMPTED NG TUBE PLACEMENT. UPON INITIAL ATTEMPT AND STARTING PROCEDURE, PATIENT STATED THAT SHE DID NOT WANT THE NG TUBE PLACED. PATIENT STATED THAT IT WAS TOO UNCOMFORTABLE AND SHE DID NOT WANT TO CONTINUE. PROVIDER NOTIFIED. PROVIDER VERBALIZED OK TO HOLD NG TUBE PLACEMENT.
[2022-11-11 21:28] VITALS: BP 124/89; PULSE 87; RESP 16; O2SAT 96
[2022-11-11 21:32] VITALS: BP 124/89; PULSE 87; RESP 16; O2SAT 96
[2022-11-11 21:37] LABS: Free T4 Free Thyroxine 0.55 ng/dL (0.82-1.77)
[2022-11-11 21:47] VITALS: BP 130/90; PULSE 95; RESP 15; TEMP 36.8; O2SAT 97
--- NOTE | 2022-11-11 23:07 | P.HP_ITS ---
Providers/Chief Complaint Admitting Physician: Lissa Nino MD Primary Care Provider: Donovan Henderson Chief Complaint: abd pain N/V History of Present Illness Yanely Barajas is a 42 year old female past medical history of cervical cancer s/p radiation and chemotherapy November 2020, abdominal surgeries namely 2 C-sections, total abdominal hysterectomy presented to the hospital fpr abd pain that started on wednesday. Denies N/v/diarrhea. Last BM Wednesday. Never had a bowel obstruction before. She denies any fevers or chills, known exposure to infectious disease, like symptoms in other family members, recent travel, recent antibiotic use.?She is still followed by oncology.? She has no history of biliary tract disease.? She has no history of esophageal reflux, peptic ulcer disease etc.? No history of inflammatory bowel disease.? She states that she is able to eat simple carbohydrates sometimes but any kind of heavier foods seem to exacerbate her symptoms. Medications/Allergies Home Medications Medication Instructions Recorded Confirmed Last Taken Type diphenhydramine 25 1 tab PO Q4H PRN pain/sleep 08/15/20 09/12/20 08/13/20 History mg-acetaminophen 500 mg tablet (Tylenol PM Extra Strength) naproxen sodium 220 mg tablet 220 - 440 mg PO Q6H PRN Sleep 08/15/20 09/12/20 08/14/20 History (Aleve) hydrocodone 5 mg-acetaminophen 325 1 - 2 tab PO Q6H PRN pain 7 days 09/12/20 09/12/20 Unknown Rx mg tablet ([place]) #30 tabs Allergies Allergy/AdvReac Type Severity Reaction Status Date / Time morphine Allergy ALGY-Rash Verified 11/11/22 16:09 oxycodone [From Percocet] AdvReac ADR-Itching Verified 11/11/22 16:09 PFSH Acute PFSH: Medical History Abnormal Pap smear of cervix Surgical History H/O section x2 History of bilateral tubal ligation With last section. Family History Grandmother Stroke Maternal Sister Thyroid disease Social History Smoking and tobacco status: current every day smoker cigarettes Packs smoked per day: 1 [ Other cigarette details: Started age 17.] Alcohol intake: former Former alcohol use details: None for approximately 10 years. Substance/Drug Use: never Vitals/I&O/Wt Last Vital Signs Temp 98.2 F 11/11/22 21:47 Pulse 95 11/11/22 21:47 Resp 15 11/11/22 21:47 BP 130/90 11/11/22 21:47 Pulse Ox 97 11/11/22 21:47 O2 Del Method Room Air 11/11/22 21:47 11/11/22 11/11/22 11/12/22 14:59 22:59 06:59 Intake Total 1000 / 1000 Balance 1000 / 1000 Weight last 48 hrs Weight 62.596 kg Physical Exam Narrative: General: Alert oriented x3, patient seen laying, HEENT: Normocephalic, atraumatic, EOMI Cardio: Regular rate rhythm, normal S1-S2 Respiratory: Good bilateral air entry, no wheezes no rhonchi appreciated GI: Abdomen soft, nontender, nondistended, bowel sounds + but hypoactive Extremities: no edema Data 11/11/22 18:30 11/11/22 18:30 A&P Assessment and plan (1) Partial small bowel obstruction: (2) Hypothyroidism: (3) Cervical mass: (4) Abnormal Pap smear of cervix: Qualifiers: Abnormal Pap type: unspecified Qualified Code(s): R87.619 - Unspecified abnormal cytological findings in specimens from cervix uteri (5) Abdominal pain: Qualifiers: Abdominal location: lower abdomen, unspecified Qualified Code(s): R1 0.30 - Lower abdominal pain, unspecified Plan #Partial small bowel obstruction #Hx of multiple abdominal surgeries #Hx of cervical cancer s/p radiation and chemo #Hypothyroidism - CT abdomen pelvis showed: 1. ? Findings suggestive of partial small bowel obstruction, secondary to nonspecific enteritis, as described above. 2. ? Additional findings, as above. - NG tube was ordered but pt refused it. - Manage conservatively for now - Place on IV fluids - TSH 118, Free T4 pending. - Check CBC< CMP, MG in AM - Patient starting to pass gas - NPO at this time SCDS, heparin sub c BID FUll CODE Attestations Medical Necessity Statement*: > 2 midnight stay for management of partial small MARILYN Other Coding Information Focused coding review requested Diagnoses Partial small bowel obstruction K56.600 Hypothyroidism E03.9 Cervical mass N88.8 Abnormal Pap smear of cervix R87.619 Abnormal Pap type: unspecified Abdominal pain R10.30 Abdominal location: lower abdomen, unspecified
[2022-11-11] MEDS: heparin 5,000 unit/mL INJ 1 mL 5000 UNIT SUBCUT (23:34)
[2022-11-11] MEDS: sodium chloride 0.9% 1,000 ML 125 ML IV (23:34)
[2022-11-11] MEDS: pantoprazole 40 mg SDV IVP (23:34)
[2022-11-11 23:50] LABS: Procalcitonin 0.11 ng/mL (0-0.5)
[2022-11-12] VITALS (7 sets, daily range): BP systolic 100–112; BP diastolic 68–77; PULSE 69–83; RESP 14–16; TEMP 36.7–36.9; O2SAT 93–97
[2022-11-12] MEDS: ondansetron 2 mg/ML SDV 2 mL 4 MG IVP (01:36)
[2022-11-12] MEDS: levothyroxine 50 mcg Tablet PO (05:19)
[2022-11-12 06:28] LABS: Basophils % 0.8 %; Eosinophils # 0.1 10^3/uL (0.0-0.8); Eosinophils % 2.8 %; Hematocrit 43.6 % (37.0-47.0); Hemoglobin 14.9 g/dL (11.5-15.3); Lymphocytes % 41.4 %; Mean Corpuscular HGB Conc 34.2 g/dL (30.0-36.0); Mean Corpuscular Hemoglobin 33.2 pg (28.0-34.0); Mean Corpuscular Volume 97.1 fl (81-99); Mean Platelet Volume 10.5 fL (7.4-10.4); Monocytes # 0.4 10^3/uL (0.2-0.9); Monocytes % 15.9 %; Neutrophils % 39.1 %; Nucleated Red Blood Cells % 0 %; Platelet Count 208 10^3/cmm (130-400); Red Blood Count 4.49 10^6/uL (4.1-5.3); Red Cell Distribution Width 15.8 % (12.1-15.1); White Blood Count 2.5 10^3/uL (4.0-10.0)
[2022-11-12 06:40] LABS: Neutrophils # 0.98 10^3/uL (1.8-7.7)
[2022-11-12 06:42] LABS: Alanine Aminotransferase 8 U/L (0-33); Alkaline Phosphatase 111 U/L (35-105); Aspartate Amino Transferase 15 U/L (0-32); Blood Urea Nitrogen 12 mg/dL (6-20); Calcium 8.5 mg/dL (8.5-10.5); Carbon Dioxide 21 mmol/L (22-29); Chloride 101 mmol/L (98-107); Globulin 2.6 g/dL (1.3-4.6); Glomerular Filtration Rate 79.4 mL/min (90-130); Glucose 98 mg/dL (65-115); Osmolality Calculated 278 mOsm/kg (285-295); Sodium 134 mmol/L (136-145); Total Bilirubin 0.5 mg/dL (0.15-1.2); Total Protein 6.6 g/dL (6.6-8.7)
--- NOTE | 2022-11-12 08:43 | P.PN_ITS ---
Subjective Subjective: Patient is endorsing feeling hungry Abdominal pain has subsided She is passing flatus Patient is stating that she has an urge to go for a bowel movement today Vitals/I&O/Wt Last Vital Signs Temp 98.3 F 11/12/22 03:30 Pulse 83 11/12/22 03:30 Resp 14 11/12/22 03:30 BP 103/73 11/12/22 03:30 Pulse Ox 95 11/12/22 03:30 O2 Del Method Room Air 11/12/22 03:30 11/11/22 11/12/22 11/12/22 22:59 06:59 14:59 Intake Total 1000 / 1000 375 / 1375 Output Total 0 / 0 Balance 1000 / 1000 375 / 1375 Weight last 48 hrs Weight 62.596 kg Physical Exam Narrative: Abdomen is very soft Bowel sounds sluggish but present Patient looks dehydrated Awake and alert No active distress at the bedside GCS 15 Nonfocal neuro exam S1, S2 Currently doing well on room air Data 11/12/22 06:08 11/12/22 06:08 A&P Assessment and plan (1) Partial small bowel obstruction: (2) Hypothyroidism: (3) Cervical mass: (4) Abnormal Pap smear of cervix: Qualifiers: Abnormal Pap type: unspecified Qualified Code(s): R87.619 - Unspecified abnormal cytological findings in specimens from cervix uteri Plan Partial SBO Patient is passing flatus Abdomen is benign We will give her milk of magnesia Start D5 normal saline I have asked patient to let us know about bowel movement she has refused NG tube, no active emesis In case of any further worsening in terms of nausea vomiting all pressure will stay low to put NG tube Patient is agreeable Conservative management for now Patient is stating she had an episode of SBO in the past as well which improved conservatively N.p.o. except ice chips Full code IV fluids DVT prophylaxis on board History of cervical cancer which is stage III with lesions on bladder and liver she is following up with Dr. Pak at [facility] Hypothyroidism: Patient will need adjustment of levothyroxine dose Attestations Medical Necessity Statement*: Anticipating discharge in next 24 -48hours if clinically improved Diagnoses Partial small bowel obstruction K56.600 Hypothyroidism E03.9 Cervical mass N88.8 Abnormal Pap smear of cervix R87.619 Abnormal Pap type: unspecified
[2022-11-12] MEDS: magnesium hydroxide 30 mL UDC 15 ML PO (09:05)
[2022-11-12] MEDS: dextrose 5%-sod chloride 0.9% 1,000 ML 75 ML IV (09:38)
[2022-11-12] MEDS: heparin 5,000 unit/mL INJ 1 mL 5000 UNIT SUBCUT (11:19)
--- NOTE | 2022-11-12 23:23 | PC.NURSE ---
Went to give pt nightly injection of heparin and pt states she doesn't want med. Pt educated on why heparin was prescribed and pt still insistent on not getting shot.
[2022-11-13] VITALS: BP 95/55; PULSE 66; RESP 14; TEMP 36.6; O2SAT 94
[2022-11-13 04:00] VITALS: BP 102/63; PULSE 71; RESP 14; TEMP 36.7; O2SAT 95
[2022-11-13 05:40] LABS: Basophils % 0.6 %; Eosinophils # 0.3 10^3/uL (0.0-0.8); Eosinophils % 8.9 %; Hematocrit 37.9 % (37.0-47.0); Hemoglobin 12.5 g/dL (11.5-15.3); Lymphocytes # 1.4 10^3/uL (0.8-4.8); Lymphocytes % 41.5 %; Mean Corpuscular Hemoglobin 32.6 pg (28.0-34.0); Mean Corpuscular Volume 98.7 fl (81-99); Mean Platelet Volume 11.1 fL (7.4-10.4); Monocytes # 0.4 10^3/uL (0.2-0.9); Monocytes % 11.3 %; Neutrophils # 1.26 10^3/uL (1.8-7.7); Neutrophils % 37.4 %; Nucleated Red Blood Cells % 0 %; Platelet Count 165 10^3/cmm (130-400); Red Blood Count 3.84 10^6/uL (4.1-5.3); Red Cell Distribution Width 15.7 % (12.1-15.1); White Blood Count 3.4 10^3/uL (4.0-10.0)
[2022-11-13 06:01] LABS: Blood Urea Nitrogen 9 mg/dL (6-20); Calcium 8.5 mg/dL (8.5-10.5); Carbon Dioxide 20 mmol/L (22-29); Chloride 107 mmol/L (98-107); Glomerular Filtration Rate 92.7 mL/min (90-130); Glucose 87 mg/dL (65-115); Osmolality Calculated 284 mOsm/kg (285-295); Sodium 138 mmol/L (136-145)
[2022-11-13 06:02] LABS: Anion Gap 14.8 (5-19); Potassium 3.8 mmol/L (3.5-5.1)
[2022-11-13] MEDS: levothyroxine 50 mcg Tablet PO (06:08)
[2022-11-13 08:00] VITALS: BP 117/76; PULSE 72; RESP 17; O2SAT 95
--- NOTE | 2022-11-13 08:20 | PM.DCS ---
Discharge Providers Date of Admission: 11/11/22 21:00 Date of Discharge: November 13, 2022 Attending Provider at Admission: Lissa Nino MD Attending Provider at Discharge: Kelli Gao MD Primary Care Provider: Donovan Henderson Diagnoses at Discharge Discharge Diagnosis (1) Partial small bowel obstruction: Status: Acute (2) Hypothyroidism: Status: Acute (3) Cervical mass: Status: Acute (4) Abnormal Pap smear of cervix: Status: Acute Qualifiers: Abnormal Pap type: unspecified Qualified Code(s): R87.619 - Unspecified abnormal cytological findings in specimens from cervix uteri Reason for Visit Reason for Visit: abd pain N/V Hospital Course Hospital Course 42-year-old female with history of multiple abdominal surgeries in the past related to gynecological oncology, patient was admitted for management evaluation of recurrent emesis she was diagnosed with partial SBO, she was given milk of magnesia, she has had multiple bowel movements throughout hospitalization, she is tolerating her diet, no active emesis, please note she refused NG tube, her symptoms never worsen, no abdominal pain at all at the time of discharge, patient is happy with the progress. She was counseled to stay n.p.o. in case of further episodes of nausea vomiting at home. I will give her Zofran. For her diagnosis of hypothyroidism I am adding levothyroxine 50 mcg at the time of discharge. Physical Exam Narrative: Awake and alert GCS 15 Tolerating diet Abdomen soft S1, S2 Currently doing well on room air No active emesis Discharge Data Studies Completed and Pending Completed Studies During Hospitalization Category Date Time Status CT abdomen pelvis w con* [id number] Stat Cat Scan 11/11/22 17:00 Completed Laboratory Results WBC 3.4 10^3/uL (4.0-10.0) L 11/13/22 05:01 RBC 3.84 10^6/uL (4.1-5.3) L 11/13/22 05:01 Hgb 12.5 g/dL (11.5-15.3) 11/13/22 05:01 Hct 37.9 % (37.0-47.0) 11/13/22 05:01 MCV 98.7 fl (81-99) 11/13/22 05:01 MCH 32.6 pg (28.0-34.0) 11/13/22 05:01 MCHC 33.0 g/dL (30.0-36.0) 11/13/22 05:01 RDW 15.7 % (12.1-15.1) H 11/13/22 05:01 Plt Count 165 10^3/cmm (130-400) 11/13/22 05:01 MPV 11.1 fL (7.4-10.4) H 11/13/22 05:01 Neut % (Auto) 37.4 % 11/13/22 05:01 Lymph % (Auto) 41.5 % 11/13/22 05:01 [place] % (Auto) 11.3 % 11/13/22 05:01 Eos % (Auto) 8.9 % 11/13/22 05:01 Baso % (Auto) 0.6 % 11/13/22 05:01 Neut # (Auto) 1.26 10^3/uL (1.8-7.7) L 11/13/22 05:01 Lymph # (Auto) 1.4 10^3/uL (0.8-4.8) 11/13/22 05:01 [place] # (Auto) 0.4 10^3/uL (0.2-0.9) 11/13/22 05:01 Eos # (Auto) 0.3 10^3/uL (0.0-0.8) 11/13/22 05:01 Baso # (Auto) 0.0 10^3/uL (0.0-0.1) 11/13/22 05:01 Nucleated RBC % (auto) 0 % 11/13/22 05:01 Nucleated RBCs # 0.0 /100WBC 11/13/22 05:01 Sodium 138 mmol/L (136-145) 11/13/22 05:01 Potassium 3.8 mmol/L (3.5-5.1) 11/13/22 05:01 Chloride 107 mmol/L (98-107) 11/13/22 05:01 Carbon Dioxide 20 mmol/L (22-29) L 11/13/22 05:01 Anion Gap 14.8 (5-19) 11/13/22 05:01 BUN 9 mg/dL (6-20) 11/13/22 05:01 Creatinine 0.7 mg/dL (0.5-0.9) 11/13/22 05:01 GFR Calculation 92.7 mL/min (90-130) 11/13/22 05:01 Glucose 87 mg/dL (65-115) 11/13/22 05:01 Calculated Osmolality 284 mOsm/kg (285-295) L 11/13/22 05:01 Lactic Acid 1.0 mmol/L (0.5-2.2) 11/11/22 23:18 Calcium 8.5 mg/dL (8.5-10.5) 11/13/22 05:01 Total Bilirubin 0.5 mg/dL (0.15-1.2) 11/12/22 06:08 AST 15 U/L (0-32) 11/12/22 06:08 ALT 8 U/L (0-33) 11/12/22 06:08 Alkaline Phosphatase 111 U/L (35-105) H 11/12/22 06:08 Total Protein 6.6 g/dL (6.6-8.7) D 11/12/22 06:08 Albumin 4.0 g/dL (3.5-5.2) 11/12/22 06:08 Globulin 2.6 g/dL (1.3-4.6) 11/12/22 06:08 Lipase 13 U/L (13-60) 11/11/22 18:30 Procalcitonin 0.11 ng/mL (0-0.5) 11/11/22 23:18 TSH 118.70 uIU/mL (0.27-4.20) H 11/11/22 18:30 Free T4 0.55 ng/dL (0.82-1.77) L 11/11/22 18:30 Urine Color Yellow (Yellow) 11/11/22 20:05 Urine Appearance Sl hazy (CLEAR) A 11/11/22 20:05 Urine pH 5 (5-7) 11/11/22 20:05 Ur Specific [employer] 1.010 (1.005-1.030) 11/11/22 20:05 Urine Protein 1+ (Negative) H 11/11/22 20:05 Urine Glucose (UA) Norm (Normal) 11/11/22 20:05 Urine Ketones 2+ (Negative) H 11/11/22 20:05 Urine Blood Trace (Negative) H 11/11/22 20:05 Urine Nitrate Negative (Negative) 11/11/22 20:05 Urine Bilirubin Neg (Negative) 11/11/22 20:05 Urine Urobilinogen 1 mg/dL (Negative) H 11/11/22 20:05 Ur Leukocyte Esterase Trace (Negative) H 11/11/22 20:05 Urine RBC 0-4 /hpf (0-2) H 11/11/22 20:05 Urine WBC 0-4 /hpf (0-5) H 11/11/22 20:05 Ur Squamous Epith Cells 5-10 /hpf (0-5) H 11/11/22 20:05 Amorphous Sediment Not Reportable 11/11/22 20:05 Urine Bacteria Trace /hpf (NONE) 11/11/22 20:05 Vitals Last Vital Signs Temp 98.0 F 11/13/22 04:00 Pulse 71 11/13/22 04:00 Resp 14 11/13/22 04:00 BP 102/63 11/13/22 04:00 Pulse Ox 95 11/13/22 04:00 O2 Del Method Room Air 11/13/22 04:00 Discharge Plan Discharge Patient Disposition: Home Condition: Stable Prescriptions: New levothyroxine 50 mcg capsule 50 mcg PO DAILY Qty: 60 1RF ondansetron HCl 4 mg tablet 4 mg PO Q8H 4 Days Qty: 12 0RF Continued estradiol 1 mg tablet 1 mg PO DAILY Discharge Orders: Discharge Order (Routine); Ordered 11/13/22 Ordered By: Kelli Gao Referrals: Donovan Henderson [Primary Care Provider] - Patient Instructions: Opioid Safety Discharge Attestations Time Spent in Discharge Care*: greater than 30 min Quality Metrics Clinical Quality Measures [ No reported AMI, CVA or VTE this stay] Coding Level of Care Code Acute Code for Chg Fwd Diagnoses Partial small bowel obstruction K56.600 Hypothyroidism E03.9 Cervical mass N88.8 Abnormal Pap smear of cervix R87.619 Abnormal Pap type: unspecified
[2022-11-13] MEDS: pantoprazole DR 40 mg Tablet PO (08:45)
[2022-11-13 08:48] VITALS: BP 117/76; PULSE 72; RESP 17
[2022-11-13 14:37] VITALS: BP 117/76; PULSE 72; RESP 17
== END 2022-11-13 11:47 | disposition home or self-care (01) ==
LOC: ER 21:13 → MEDSURG 21:16
PROVIDERS: Admitting Provider Internal Medicine; Emergency Provider Emergency Medicine; PCP Family Medicine; Visit Provider Internal Medicine
DX: K56.600 Partial intestinal obstruction, unspecified as to cause (principal); N88.8 Other specified noninflammatory disorders of cervix uteri; R87.619 Unspecified abnormal cytological findings in specimens from cervix uteri; E03.9 Hypothyroidism, unspecified; F17.210 Nicotine dependence, cigarettes, uncomplicated; Z85.41 Personal history of malignant neoplasm of cervix uteri; Z92.21 Personal history of antineoplastic chemotherapy; Z92.3 Personal history of irradiation
CPT/HCPCS: 36415; 74177; 80048; 80053; 81001; 83605; 83690; 84145; 84439; 84443; 85025; 96361; 96372; 96374; 96375; 96376; 99285; C9113; G0378; J1644; J2405; J3010; J7030; J7042; J7120; Q9967